=== PATIENT | female | born 1985 | race Caucasian/White ===

== ENCOUNTER 2016-09-16 13:02 | Emergency (ER) | payer OTHER ==
[~2016-09-16] VITALS: Ht 170.1 cm; Wt 88.5 kg
[~2016-09-16 13:02] MED LIST: AMOXICILLIN500 MG PO; AUGMENTIN 875 M1 TA1 PO; B COMPLETE1 EACH PO; B12-METHYL1000 MCG PO; BACTRIM DS 8001 TA1 PO; CIPROFLOXACIN500 MG PO; CLINDAMYCIN HC300 MG PO; CORTISPORIN 1%-10 M1 OT; FIORICET 325 MG1 TAB PO; FLAGYL500 MG PO; GLIPIZIDE5 MG PO; HYDROCODONE BIT1 T11 PO; LISINOPRIL5 MG PO; METFORMIN500 MG PO; MOTRIN600 MG PO; MOTRIN800 MG PO; Metformin Hydr500 MG PO; NAPROSYN500 MG PO; NKHM PO; PHENERGAN25 M1 PO; PRENATAL 1 PLUS1 TA3 PO; PRILOSEC20 M1 PO; QUALITY CHOICE10 M3 PO; ROBAXIN500 MG PO; TRAMADOL HCL50 MG PO; TRIMOX500 MG PO; VERAPAMIL HCL80 MG PO; VICODIN 5/500 505 MG PO; WELLBUTRIN SR150 MG PO; ZESTRIL10 MG PO; ZOCOR20 MG PO
[2016-09-16] MEDS ORDERED: AVPAK AZITHROM250 M1 PO (14:48)
[2016-09-16] MEDS ORDERED: PREDNISONE10 MG PO (14:48)
== END 2016-09-16 14:51 | disposition home or self-care (01) ==
LOC: ED 13:02
DX: J20.9 Acute bronchitis, unspecified (principal); F17.210 Nicotine dependence, cigarettes, uncomplicated; Z88.6 Allergy status to analgesic agent; Z79.899 Other long term (current) drug therapy

== ENCOUNTER 2017-01-05 12:15 | Emergency (ER) | payer OTHER ==
[~2017-01-05] VITALS: Ht 170.1 cm; Wt 86.2 kg
[~2017-01-05 12:15] MED LIST changes: +AVPAK AZITHROM250 M1 PO; +PREDNISONE10 MG PO
== END 2017-01-05 14:59 | disposition home or self-care (01) ==
LOC: ED 12:15
DX: S93.402A Sprain of unspecified ligament of left ankle, initial encounter (principal); F17.200 Nicotine dependence, unspecified, uncomplicated; Z88.6 Allergy status to analgesic agent; Z79.899 Other long term (current) drug therapy; X58.XXXA Exposure to other specified factors, initial encounter; Y93.89 Activity, other specified; Y92.89 Other specified places as the place of occurrence of the external cause; Y99.8 Other external cause status

== ENCOUNTER → 2017-07-11 | Outpatient (CLI) | payer OTHER | END | disposition home or self-care (01) | LOC: MRI 07:35 | DX: J32.4 Chronic pansinusitis (principal) ==

== ENCOUNTER → 2017-07-19 | Outpatient (CLI) | payer OTHER | END | disposition home or self-care (01) | LOC: MRI 10:45 | DX: J32.4 Chronic pansinusitis (principal); R93.8 Abnormal findings on diagnostic imaging of other specified body structures; E11.9 Type 2 diabetes mellitus without complications; I10 Essential (primary) hypertension; F17.200 Nicotine dependence, unspecified, uncomplicated ==

== ENCOUNTER 2017-11-23 11:58 | Emergency (ER) | payer OTHER ==
[~2017-11-23] VITALS: Ht 170.1 cm; Wt 86.2 kg
[2017-11-23] MEDS ORDERED: Motrin,Rufen800 MG PO (13:44)
== END 2017-11-23 14:05 | disposition home or self-care (01) ==
LOC: ED 11:58
DX: S46.911A Strain of unspecified muscle, fascia and tendon at shoulder and upper arm level, right arm, initial encounter (principal); F17.200 Nicotine dependence, unspecified, uncomplicated; Z88.5 Allergy status to narcotic agent; Z79.2 Long term (current) use of antibiotics; Z79.899 Other long term (current) drug therapy; X50.0XXA Overexertion from strenuous movement or load, initial encounter; Y93.F2 Activity, caregiving, lifting; Y92.69 Other specified industrial and construction area as the place of occurrence of the external cause; Y99.8 Other external cause status

== ENCOUNTER 2018-05-11 00:26 | Emergency (ER) | payer SELFPAY ==
[~2018-05-11] VITALS: Ht 170.1 cm; Wt 86.2 kg
[~2018-05-11 00:26] MED LIST changes: +Motrin,Rufen800 MG PO
[2018-05-11] MEDS ORDERED: IBU800 MG PO (00:33)
[2018-05-11] MEDS ORDERED: CLINDAMYCIN150 MG PO (00:33)
[2018-07-08] MEDS ORDERED: SEPTDS PO (01:35)
== END 2018-05-11 01:01 | disposition home or self-care (01) ==
LOC: ED 00:26
DX: K02.9 Dental caries, unspecified (principal); F17.200 Nicotine dependence, unspecified, uncomplicated; Z88.5 Allergy status to narcotic agent; Z79.899 Other long term (current) drug therapy; Z79.84 Long term (current) use of oral hypoglycemic drugs

== ENCOUNTER → 2020-02-25 | Outpatient (CLI) | payer SELFPAY ==
[~2020-02-25] MED LIST changes: +CLINDAMYCIN150 MG PO; +IBU800 MG PO; +SEPTDS PO
[2020-02-25 16:10] LABS: BILIRUBIN Negative (Negative); BLOOD Negative (Negative); CLARITY Clear (Clear); COLOR Yellow (Yellow); GLUCOSE 3+ (Negative); KETONE Negative (Negative); LEUKO ESTERASE Negative (Negative); NITRITE Negative (Negative); PH 5.5 (4.5-8.0); UROBILINOGEN 0.2 E.U./dl (0.0-1.0)
[2020-02-25 16:10] LABS: BASO # 0.1 10*3/uL (0.0-0.1); EOS # 0.4 10*3/uL (0.0-0.4); HEMATOCRIT 44.7 % (37.0-47.0); LYMPH # 3.5 10*3/uL (1.3-4.4); LYMPH % 37.6 % (27.0-41.0); MEAN CELL VOLUME 97.6 fl (81.0-99.0); MEAN CORPUSCULAR HGB CONC 33.8 g/dl (33.0-37.0); MEAN PLATELET VOLUME 8.8 fl (9.6-12.3); MONO # 0.7 10*3/uL (0.1-1.0); MONO % 7.6 % (3.0-9.0); NEUT # 4.6 10*3/uL (2.3-7.9); NEUT % 49.5 % (47.0-73.0); PLATELET COUNT AUTOMATED 292 10*3/uL (130-400); RED BLOOD COUNT 4.58 10*6/uL (4.10-5.10); RED CELL DISTRI WIDTH 12.3 % (0-14.5); WHITE BLOOD COUNT 9.2 10*3/uL (4.8-10.8)
[2020-02-25 16:25] LABS: BACTERIA TRACE; RBC 0-2 rbc/hpf (0-2); WBC 0-2 wbc/hpf (0-5)
[2020-02-25 16:31] LABS: ALKALINE PHOSPHATASE 78 U/L (45-117); BUN 8 mg/dl (7-24); CHLORIDE 105 mmol/L (98-107); CHOLESTEROL 230 mg/dL (<200); CREATININE 0.79 mg/dL (0.55-1.02); HDL CHOLESTEROL 35 mg/dl (40-60); LDL CHOLESTEROL 136 mg/dL (9-159); POTASSIUM 3.8 mmol/L (3.5-5.1); SGOT/AST 13 IU/L (3-35); SGPT/ALT 40 U/L (12-78); SODIUM 136 mmol/L (136-145); TOTAL PROTEIN 7.9 gm/dL (6.4-8.2); TRIGLYCERIDES 296 mg/dl (<150); VLDL CHOLESTEROL 59 mg/dL (6-40)
[2020-02-25 17:04] LABS: VITAMIN D, 25-HYDROXY 19.6 ng/mL (30-100)
== END | disposition home or self-care (01) ==
LOC: RESCLI 14:41
PROVIDERS: Hospitalist; ATTEND Internal Medicine Nephrology
DX: Z12.4 Encounter for screening for malignant neoplasm of cervix (principal); Z00.00 Encounter for general adult medical examination without abnormal findings; E78.5 Hyperlipidemia, unspecified; I12.9 Hypertensive chronic kidney disease with stage 1 through stage 4 chronic kidney disease, or unspecified chronic kidney disease; E11.22 Type 2 diabetes mellitus with diabetic chronic kidney disease; N18.9 Chronic kidney disease, unspecified; L02.92 Furuncle, unspecified

== ENCOUNTER → 2020-10-30 | Outpatient (CLI) | payer SELFPAY | END | disposition home or self-care (01) | LOC: RESCLI 00:32 | PROVIDERS: ATTEND Internal Medicine | DX: I10 Essential (primary) hypertension (principal); E78.5 Hyperlipidemia, unspecified; E10.65 Type 1 diabetes mellitus with hyperglycemia; K21.9 Gastro-esophageal reflux disease without esophagitis; E55.9 Vitamin D deficiency, unspecified; Z79.84 Long term (current) use of oral hypoglycemic drugs; Z79.899 Other long term (current) drug therapy; Z88.8 Allergy status to other drugs, medicaments and biological substances; Z98.890 Other specified postprocedural states ==

== ENCOUNTER → 2021-01-22 | Outpatient (CLI) | payer SELFPAY | END | disposition home or self-care (01) | LOC: RESCLI 06:38 | PROVIDERS: ATTEND Internal Medicine | DX: I10 Essential (primary) hypertension (principal); E78.5 Hyperlipidemia, unspecified; E10.65 Type 1 diabetes mellitus with hyperglycemia; K21.9 Gastro-esophageal reflux disease without esophagitis; E55.9 Vitamin D deficiency, unspecified; H65.92 Unspecified nonsuppurative otitis media, left ear; Z79.84 Long term (current) use of oral hypoglycemic drugs; Z79.899 Other long term (current) drug therapy; Z88.2 Allergy status to sulfonamides; Z88.8 Allergy status to other drugs, medicaments and biological substances ==

== ENCOUNTER → 2022-01-11 | Outpatient (CLI) | payer SELFPAY ==
[2022-01-11 11:25] LABS: BASO # 0.1 10*3/uL (0.0-0.1); BASO % 1.2 % (0.0-1.0); EOS # 0.3 10*3/uL (0.0-0.4); EOS % 4.3 % (1.0-4.0); LYMPH # 2.8 10*3/uL (1.3-4.4); MEAN CELL VOLUME 97.9 fl (81.0-99.0); MEAN CORPUSCULAR HGB 32.4 pg (27.0-31.0); MEAN CORPUSCULAR HGB CONC 33.1 g/dl (33.0-37.0); MEAN PLATELET VOLUME 8.8 fl (9.6-12.3); MONO # 0.6 10*3/uL (0.1-1.0); MONO % 7.7 % (3.0-9.0); NEUT # 3.8 10*3/uL (2.3-7.9); NEUT % 49.4 % (47.0-73.0); PLATELET COUNT AUTOMATED 287 10*3/uL (130-400); RED BLOOD COUNT 4.29 10*6/uL (4.10-5.10); RED CELL DISTRI WIDTH 12.4 % (0-14.5); WHITE BLOOD COUNT 7.6 10*3/uL (4.8-10.8)
[2022-01-11 11:47] LABS: ALKALINE PHOSPHATASE 57 U/L (45-117); BUN 11 mg/dl (7-24); CHLORIDE 108 mmol/L (98-107); CHOLESTEROL 154 mg/dL (<200); CREATININE 0.81 mg/dL (0.55-1.02); LDL CHOLESTEROL 79 mg/dL (9-159); POTASSIUM 4.4 mmol/L (3.5-5.1); SGOT/AST 10 IU/L (3-35); SGPT/ALT 28 U/L (12-78); SODIUM 137 mmol/L (136-145); TOTAL PROTEIN 6.9 gm/dL (6.4-8.2); TRIGLYCERIDES 219 mg/dl (<150)
== END | disposition home or self-care (01) ==
LOC: LAB 02:54 → RESCLI 02:54
PROVIDERS: Student in an Organized Health Care Education/Training Program; ATTEND Internal Medicine
DX: E11.9 Type 2 diabetes mellitus without complications (principal); E55.9 Vitamin D deficiency, unspecified; E78.5 Hyperlipidemia, unspecified; I10 Essential (primary) hypertension; K59.09 Other constipation; F17.210 Nicotine dependence, cigarettes, uncomplicated; J30.2 Other seasonal allergic rhinitis; Z88.8 Allergy status to other drugs, medicaments and biological substances; Z98.890 Other specified postprocedural states; Z79.899 Other long term (current) drug therapy